=== PATIENT | male | born 1975 | race Caucasian/White ===

== ENCOUNTER 2022-03-29 05:29 | Emergency (ER) | payer SELFPAY ==
--- NOTE | 2022-03-29 06:04 | ER ---
Nurse's Notes [facility] [place] Name: Marv Tam Age: 47 yrs Sex: Male : 1975 Arrival Date: 03/29/2022 Time: 05:32 Bed 7 Private MD: Diagnosis: Dental caries, unspecified;Periapical abscess without sinus Presentation: 03/29 05:51 Chief complaint: Spouse and/or significant other states: "His tooth has been hurting vc1 him for the last 2 days. He said it hurts so bad it makes him feel like he is going to pass out.". Coronavirus screen: Vaccine status: Patient reports being unvaccinated. At this time, the client does not indicate any symptoms associated with coronavirus-19. Ebola Screen: No symptoms or risks identified at this time. Initial Sepsis Screen: Does the patient meet any 2 criteria? No. Patient's initial sepsis screen is negative. Does the patient have a suspected source of infection? No. Patient's initial sepsis screen is negative. Risk Assessment: Do you want to hurt yourself or someone else? Patient reports no desire to harm self or others. Onset of symptoms was March 27, 2022. 05:51 Method Of Arrival: Ambulatory vc1 05:51 Acuity: LEE ANN 4 vc1 Triage Assessment: 05:53 General: Appears in no apparent distress. uncomfortable, Behavior is cooperative, vc1 appropriate for age. Pain: Complains of pain in mouth Pain radiates to left eye Pain currently is 10 out of 10 on a pain scale. Quality of pain is described as sharp, throbbing. EENT: Reports pain in mouth. Neuro: Level of Consciousness is awake, alert, obeys commands, Oriented to person, place, time, situation, Appropriate for age. Cardiovascular: No deficits noted. Respiratory: No deficits noted. GI: No deficits noted. : No deficits noted. Derm: No deficits noted. Musculoskeletal: No deficits noted. Historical: - Allergies: 05:53 No Known Allergies; vc1 - Home Meds: 05:53 None [Active]; vc1 - PMHx: 05:53 None; vc1 - PSHx: 05:53 None; vc1 - Immunization history:: Adult Immunizations up to date. - Social history:: Smoking status: Patient reports use of chewing tobacco. - Family history:: not pertinent. - Hospitalizations: : No recent hospitalization is reported. Screenin:54 Abuse screen: Denies threats or abuse. Nutritional screening: No deficits noted. vc1 Tuberculosis screening: No symptoms or risk factors identified. Fall Risk None identified. Assessment: 05:55 Reassessment: "See triage assessment". vc1 Vital Signs: 05:51 BP 140 / 102; Pulse 84; Resp 18; Temp 98.2; Pulse Ox 98% ; Weight 77.11 kg; Height 6 vc1 ft. 0 in. (182.88 cm); Pain 10/10; 06:12 BP 129 / 97; vc1 05:51 Body Mass Index 23.06 (77.11 kg, 182.88 cm) vc1 ED Course: 05:32 Patient arrived in ED. bp1 05:35 Trevon Mckeon MD is Attending Physician. rn 05:53 Triage completed. vc1 05:54 Arm band placed on right wrist. vc1 05:55 Patient has correct armband on for positive identification. Pulse ox on. NIBP on. vc1 06:11 Inserted saline lock: 20 gauge in right antecubital area, using aseptic technique. vc1 06:37 No provider procedures requiring assistance completed. IV discontinued, intact, vc1 bleeding controlled, No redness/swelling at site. Pressure dressing applied. Administered Medications: 06:11 Drug: Clindamycin 900 mg Route: IVPB; Infused Over: 30 mins; Site: right antecubital; vc1 06:11 Drug: Decadron - Dexamethasone 10 mg Route: IVP; Site: right antecubital; vc1 06:11 Drug: morphine 4 mg Route: IVP; Infused Over: 4 mins; Site: right antecubital; vc1 Medication: 05:55 VIS not applicable for this client. vc1 Outcome: 06:03 Discharge ordered by . rn 06:40 Discharged to home ambulatory, with significant other. vc1 06:40 Condition: good 06:40 Discharge instructions given to patient, sales representative consultant, Instructed on discharge instructions, follow up and referral plans. medication usage, Demonstrated understanding of instructions, follow-up care, medications, Prescriptions given X 2. 06:41 Patient left the ED. vc1 Signatures: Trevon Mckeon MD MD rn [place], Brittany bp1 Veronica Wei RN RN vc1
--- NOTE | 2022-03-29 06:04 | EDPHYS ---
Physician Documentation [facility] Name: Marv Tam Age: 47 yrs Sex: Male : 1975 Arrival Date: 03/29/2022 Time: 05:32 Bed 7 Private MD: ED Physician Trevon Mckeon HPI: 03/29 05:46 This 47 yrs old Male presents to ER via Unassigned with complaints of Facial Swelling, rn Toothache. 05:46 The patient presents with pain, swelling. The problem is located in the left upper rn teeth. Onset: The symptoms/episode began/occurred 2 day(s) ago. Duration: The symptoms are continuous. Modifying factors: The symptoms are alleviated by nothing, the symptoms are aggravated by chewing, talking. Associated signs and symptoms: Pertinent positives: pain, swelling, Pertinent negatives: fever, inability to eat. Severity of symptoms: At their worst the symptoms were moderate, in the emergency department the symptoms are unchanged. The patient has experienced similar episodes in the past. The patient has not recently seen a physician. Pt reports has "bad teeth", pain started again 2 days ago, began taking antibiotics that he had left over from last time, but got worse this AM with swelling of left cheek. NO fever. Knows needs to get in with dentist. . Historical: - Allergies: 05:53 No Known Allergies; vc1 - Home Meds: 05:53 None [Active]; vc1 - PMHx: 05:53 None; vc1 - PSHx: 05:53 None; vc1 - Immunization history:: Adult Immunizations up to date. - Social history:: Smoking status: Patient reports use of chewing tobacco. - Family history:: not pertinent. - Hospitalizations: : No recent hospitalization is reported. ROS: 05:46 Constitutional: Negative for fever, chills, and weight loss, Eyes: Negative for injury, rn pain, redness, and discharge, ENT: + dental pain Neck: Negative for injury, pain, and swelling, Cardiovascular: Negative for chest pain, palpitations, and edema, Respiratory: Negative for shortness of breath, cough, wheezing, and pleuritic chest pain, Neuro: Negative for weakness, numbness, tingling, and seizure. Exam: 05:46 Constitutional: This is a well developed, well nourished patient who is awake, alert, rn appears uncomfortable Head/Face: Atraumatic. Eyes: Pupils equal round and reactive to light, extra-ocular motions intact. Lids and lashes normal. Conjunctiva and sclera are non-icteric and not injected. Cornea within normal limits. ENT: Poor general dentition, + buccal space swelling without fluctuance or mass. Gingiva without obvious abscess or fluctuance. No active drainage. Lips everted and oral cavity explored visually and with palpation/sweeping. Neck: Trachea midline, no masses palpated, and no cervical lymphadenopathy. Supple, full range of motion without nuchal rigidity, or vertebral point tenderness. No Meningismus. Neuro: Awake and alert, GCS 15, oriented to person, place, time, and situation. Cranial nerves II-XII grossly intact. Motor strength 5/5 in all extremities. Sensory grossly intact. Cerebellar exam normal. Normal gait. Vital Signs: 05:51 BP 140 / 102; Pulse 84; Resp 18; Temp 98.2; Pulse Ox 98% ; Weight 77.11 kg; Height 6 vc1 ft. 0 in. (182.88 cm); Pain 10/10; 06:12 BP 129 / 97; vc1 05:51 Body Mass Index 23.06 (77.11 kg, 182.88 cm) vc1 MDM: 05:35 Patient medically screened. rn 06:01 Differential diagnosis: dental caries, dental abscess. Data reviewed: vital signs, rn nurses notes, and as a result, I will discharge patient. Counseling: I had a detailed discussion with the patient and/or guardian regarding: the historical points, exam findings, and any diagnostic results supporting the discharge/admit diagnosis, the need for outpatient follow up, to return to the emergency department if symptoms worsen or persist or if there are any questions or concerns that arise at home. Response to treatment: the patient's symptoms have mildly improved after treatment, and as a result, I will discharge patient. Special discussion: I discussed with the patient/guardian in detail that at this point there is no indication for admission to the hospital. It is understood, however, that if the symptoms persist or worsen the patient needs to return immediately for re-evaluation. Based on the history and exam findings, there is no indication for further emergent testing or inpatient evaluation. I discussed with the patient/guardian the need to see a dentist for further evaluation of the symptoms. 06:01 ED course: Nothing drainable at this time, most likely early phlegmon or developing rn abscess, will place on abx and dc home with dentist f/u. . 03/29 05:46 Order name: IV Start; Complete Time: 06:11 rn Administered Medications: 06:11 Drug: Clindamycin 900 mg Route: IVPB; Infused Over: 30 mins; Site: right antecubital; vc1 06:11 Drug: Decadron - Dexamethasone 10 mg Route: IVP; Site: right antecubital; vc1 06:11 Drug: morphine 4 mg Route: IVP; Infused Over: 4 mins; Site: right antecubital; vc1 Disposition Summary: 03/29/22 06:03 Discharge Ordered Location: Home rn Problem: new rn Symptoms: have improved rn Condition: Stable rn Diagnosis - Dental caries, unspecified rn - Periapical abscess without sinus rn Followup: rn - With: Private Physician - When: As needed - Reason: Recheck today's complaints, Re-evaluation by your physician Discharge Instructions: - Discharge Summary Sheet rn - Dental Abscess rn - Dental Caries, Adult rn - Dental Pain rn Forms: - Medication Reconciliation Form rn - Thank You Letter rn - Antibiotic planning intern - Prescription Opioid Use rn Prescriptions: - Clindamycin HCl 300 mg Oral Capsule - take 1 capsule by ORAL route every 6 hours for 10 days; 40 capsule; Refills: 0, rn Product Selection Permitted - Tramadol 50 mg Oral Tablet - take 1 tablet by ORAL route every 8 hours as needed; 12 tablet; Refills: 0, rn Product Selection Permitted Signatures: Trevon Mckeon MD MD rn Calc[place], Vanessa, RN RN vc1 Corrections: (The following items were deleted from the chart) 05:48 05:46 Constitutional: Negative for fever, chills, and weight loss, Eyes: Negative for rn injury, pain, redness, and discharge, ENT: + dental pain Cardiovascular: Negative for chest pain, palpitations, and edema, Respiratory: Negative for shortness of breath, cough, wheezing, and pleuritic chest pain, Neuro: Negative for weakness, numbness, tingling, and seizure, rn
[2022-03-29] MEDS ORDERED: MORPHINE 4 MG/ML SYR ONE (06:06)
[2022-03-29] MEDS ORDERED: ONDANSETRON 4 MG/2 ML VIAL ONE (06:06)
[2022-03-29] MEDS ORDERED: CLINDAMYCIN 900MG/D5W 900 MG/50 ML IVPB IV ONE (06:06)
[2022-03-29] MEDS ORDERED: dexAMETHasone 10 MG/ML VIAL ONE (06:06)
[2022-03-29 06:54] VITALS: TEMP 98.2; O2SAT 98
[2022-03-29 07:08] VITALS: BP 129/97
== END 2022-03-29 06:41 | disposition home or self-care (01) ==
LOC: ER 05:29
DX: K04.7 Periapical abscess without sinus (principal); K02.9 Dental caries, unspecified; F17.220 Nicotine dependence, chewing tobacco, uncomplicated
CPT/HCPCS: 96374; 96375; 99284; J1100; J2405

== ENCOUNTER 2023-04-23 01:56 | Emergency (ER) | payer SELFPAY ==
--- NOTE | 2023-04-23 03:36 | ER ---
Nurse's Notes [facility] [place] Name: Marv Tam Age: 48 yrs Sex: Male : 1975 Arrival Date: 04/23/2023 Time: 01:56 Bed 5 Private MD: Diagnosis: Viral syndrome Presentation: 04/23 02:21 Chief complaint: Patient states: Yesterday i was at work and it just hit me all of the kd3 sudden around 4 PM. I was so tired, I could hardly drive home. I started to ache all over and i got nauseous. I cannot keep anything down and I had a fever of 99 at home. Coronavirus screen: Vaccine status: Patient reports being unvaccinated. Ebola Screen: No symptoms or risks identified at this time. Initial Sepsis Screen: Does the patient meet any 2 criteria? No. Patient's initial sepsis screen is negative. Does the patient have a suspected source of infection? No. Patient's initial sepsis screen is negative. Risk Assessment: Do you want to hurt yourself or someone else? Patient reports no desire to harm self or others. Onset of symptoms was April 23, 2023. 02:21 Method Of Arrival: Ambulatory kd3 02:21 Acuity: LEE ANN 4 kd3 Triage Assessment: 02:22 General: Appears uncomfortable, Behavior is cooperative, anxious. Pain: Complains of kd3 pain in body aches. GI: Reports nausea, vomiting. Historical: - Allergies: 02:22 No Known Allergies; kd3 - Immunization history:: Adult Immunizations up to date. - Social history:: Smoking status: Patient denies any tobacco usage or history of. Screenin:23 [facility] ED Fall Risk Assessment (Adult) History of falling in the last 3 months, kd3 including since admission No falls in past 3 months (0 pts) Confusion or Disorientation No (0 pts) Intoxicated or Sedated No (0 pts) Impaired Gait No (0 pts) Mobility Assist Device Used No (0 pt) Altered Elimination No (0 pt) Score/Fall Risk Level 0 - 2 = Low Risk Maintained a safe environment. Abuse screen: Denies threats or abuse. Denies injuries from another. Nutritional screening: No deficits noted. Tuberculosis screening: No symptoms or risk factors identified. Assessment: 02:23 Pain: Complains of pain in body aches. Pain: Complains of pain in headache. Neuro: kd3 Level of Consciousness is awake, alert, obeys commands, Oriented to person, place, time, situation. Cardiovascular: Patient's skin is warm and dry. Respiratory: Airway is patent Trachea midline Respiratory effort is even, unlabored, Respiratory pattern is regular, symmetrical. GI: Abdomen is non-distended. Vital Signs: 02:17 BP 145 / 101; Pulse 85; Resp 20; Temp 98.5(O); Pulse Ox 100% on R/A; Weight 77.11 kg; rv1 Height 6 ft. 0 in. ; Pain 10/10; 02:44 BP 150 / 104; Pulse 78; Resp 18; Pulse Ox 100% on R/A; kd3 03:08 BP 137 / 102; Pulse 73; Resp 15; Pulse Ox 100% on R/A; kd3 03:39 BP 128 / 94; Pulse 72; Resp 18; Pulse Ox 99% on R/A; kd3 02:17 Body Mass Index 23.06 (77.11 kg, 182.88 cm) rv1 02:17 Pain Scale: Adult rv1 ED Course: 01:57 Patient arrived in ED. [id number] 02:00 Conchita Blackburn MD is Attending Physician. sp3 02:11 Karely Chapa, CEZAR is Primary Nurse. kd3 02:22 Triage completed. kd3 02:22 Arm band placed on right wrist. kd3 02:23 No provider procedures requiring assistance completed. kd3 02:24 Patient has correct armband on for positive identification. Provided Education on: . kd3 02:24 Flu Sent. kd3 02:24 SARS-COV-2 RT PCR Sent. kd3 03:39 Patient did not have IV access during this emergency room visit. kd3 Administered Medications: 03:31 Drug: HYDROcodone-acetaminophen PO 5 mg-325 mg 2 tabs Route: PO; kd3 03:40 Follow up: Response: No adverse reaction; Pain is decreased kd3 Medication: 02:24 VIS not applicable for this client. kd3 Outcome: 03:35 Discharge ordered by . sp3 03:39 Discharged to home ambulatory, with family. kd3 03:39 Condition: stable 03:39 Discharge instructions given to patient, family, Instructed on discharge instructions, follow up and referral plans. medication usage, Demonstrated understanding of instructions, follow-up care, medications, Prescriptions given X 1. 03:40 Patient left the ED. kd3 Signatures: Conchita Blackburn MD MD sp3 Sonia Meij6 Karely Chapa RN RN kd[address] rv1
--- NOTE | 2023-04-23 03:36 | EDPHYS ---
Physician Documentation [facility] Name: Marv Tam Age: 48 yrs Sex: Male : 1975 Arrival Date: 04/23/2023 Time: 01:56 Bed 5 Private MD: ED Physician Conchita Blackburn HPI: 04/23 02:22 This 48 yrs old Male presents to ER via Ambulatory with complaints of Pain All Over, sp3 General Weakness, Nausea/Vomiting. 02:22 48-year-old male with no significant past medical history presents to the ED with chief sp3 complaint body aches, subjective fever for 2 days. Patient states he may have "caught something from work". He denies neck pain, URI symptoms including cough, dysuria, syncope, objective fever, or any other signs or symptoms at this time. ROS is otherwise negative.. Historical: - Allergies: 02: No Known Allergies; kd3 - Immunization history:: Adult Immunizations up to date. - Social history:: Smoking status: Patient denies any tobacco usage or history of. ROS: 02:23 Eyes: Negative for injury, pain, redness, and discharge, ENT: Negative for injury, sp3 pain, and discharge, Neck: Negative for injury, pain, and swelling, Cardiovascular: Negative for chest pain, palpitations, and edema, Respiratory: Negative for shortness of breath, cough, wheezing, and pleuritic chest pain, Abdomen/GI: Negative for abdominal pain, nausea, vomiting, diarrhea, and constipation, Back: Negative for injury and pain, MS/Extremity: Negative for injury and deformity, Skin: Negative for injury, rash, and discoloration, Neuro: Negative for headache, weakness, numbness, tingling, and seizure. 02:23 All other systems are negative. Exam: 02:23 Constitutional: This is a well developed, well nourished patient who is awake, alert, sp3 and in no acute distress. Head/Face: Normocephalic, atraumatic. Eyes: Pupils equal round and reactive to light, extra-ocular motions intact. Lids and lashes normal. Conjunctiva and sclera are non-icteric and not injected. Cornea within normal limits. Periorbital areas with no swelling, redness, or edema. ENT: Nares patent. No nasal discharge, no septal abnormalities noted. External auditory canals are clear. Oropharynx with no redness, swelling, or masses, exudates, or evidence of obstruction, uvula midline. Mucous membranes moist. Neck: Trachea midline, no thyromegaly or masses palpated, and no cervical lymphadenopathy. Supple, full range of motion without nuchal rigidity, or vertebral point tenderness. No Meningismus. Chest/axilla: Normal chest wall appearance and motion. Nontender with no deformity. No lesions are appreciated. Cardiovascular: Regular rate and rhythm with a normal S1 and S2. No gallops, murmurs, or rubs. Normal PMI, no JVD. No pulse deficits. Respiratory: Lungs have equal breath sounds bilaterally, clear to auscultation and percussion. No rales, rhonchi or wheezes noted. No increased work of breathing, no retractions or nasal flaring. Abdomen/GI: Soft, non-tender, with normal bowel sounds. No distension or tympany. No guarding or rebound. No evidence of tenderness throughout. Back: No spinal tenderness. No costovertebral tenderness. Full range of motion. Skin: Warm, dry with normal turgor. Normal color with no rashes, no lesions, and no evidence of cellulitis. MS/ Extremity: Pulses equal, no cyanosis. Neurovascular intact. Full, normal range of motion. Neuro: Awake and alert, GCS 15, oriented to person, place, time, and situation. Cranial nerves II-XII grossly intact. Motor strength 5/5 in all extremities. Sensory grossly intact. Cerebellar exam normal. Normal gait. Psych: Awake, alert, with orientation to person, place and time. Behavior, mood, and affect are within normal limits. Vital Signs: 02:17 BP 145 / 101; Pulse 85; Resp 20; Temp 98.5(O); Pulse Ox 100% on R/A; Weight 77.11 kg; rv1 Height 6 ft. 0 in. ; Pain 10/10; 02:44 BP 150 / 104; Pulse 78; Resp 18; Pulse Ox 100% on R/A; kd3 03:08 BP 137 / 102; Pulse 73; Resp 15; Pulse Ox 100% on R/A; kd3 03:39 BP 128 / 94; Pulse 72; Resp 18; Pulse Ox 99% on R/A; kd3 02:17 Body Mass Index 23.06 (77.11 kg, 182.88 cm) rv1 02:17 Pain Scale: Adult rv1 MDM: 02:02 Patient medically screened. sp3 02:23 Data reviewed: vital signs, nurses notes, lab test result(s). ED course: 48-year-old sp3 male with likely viral syndrome type presentation. Flu and COVID are pending. Patient's vital signs are normal and he is taking p.o. Not highly suspicious for sepsis, shock, acute coronary syndrome, or other critical pathology at this time.. 03:34 ED course: Influenza and COVID-19 are both negative. We will discharge patient home sp3 with diagnosis of viral syndrome follow-up with PCP.. 04/23 02:08 Order name: SARS-COV-2 RT PCR; Complete Time: 03:07 sp3 04/23 02:08 Order name: Flu sp3 04/23 02:08 Order name: PO challenge; Complete Time: 02:36 sp3 Administered Medications: 03:31 Drug: HYDROcodone-acetaminophen PO 5 mg-325 mg 2 tabs Route: PO; kd3 03:40 Follow up: Response: No adverse reaction; Pain is decreased kd3 Disposition Summary: 04/23/23 03:35 Discharge Ordered Location: Home sp3 Condition: Stable sp3 Diagnosis - Viral syndrome sp3 Followup: sp3 - With: Private Physician - When: Upon discharge from the Emergency Department - Reason: Continuance of care Discharge Instructions: - Discharge Summary Sheet sp3 - Viral Illness, Adult sp3 Forms: - Medication Reconciliation Form sp3 - Thank You Letter sp3 - Antibiotic Education sp3 - Prescription Opioid Use sp3 - Patient Portal Instructions sp3 - Leadership Thank You Letter sp3 Prescriptions: - Diclofenac Sodium 75 mg Oral Tablet Sustained Release - take 1 tablet by ORAL route 2 times per day; 30 tablet; Refills: 0, Product sp3 Selection Permitted Signatures: Dispatcher [employer] EDMS Conchita Blackburn MD MD sp3 Karely Chapa RN RN kd3
[2023-04-23] MEDS ORDERED: HYDROCODONE/APAP 5/325 MG TAB ONE (03:39)
[2023-04-23 03:44] VITALS: TEMP 98.5
[2023-04-23 03:47] VITALS: BP 128/94; O2SAT 99
== END 2023-04-23 03:40 | disposition home or self-care (01) ==
LOC: ER 01:56
DX: B34.9 Viral infection, unspecified (principal); Z20.822 Contact with and (suspected) exposure to COVID-19
CPT/HCPCS: 87635; 87804